=== PATIENT | male | born 1970 | race Caucasian/White ===

== ENCOUNTER 2022-11-25 16:45 | Emergency (ER) | payer BC, SELFPAY ==
--- NOTE | 2022-11-25 16:43 | ECG_ITS ---
APPROVED REPORT Exam: Resting ECG HR:102 bpm ECG Measurements Heart Rate 102 AXES SC 155 P 61 QRSd 100 QRS 80 QT 334 T 66 QTc 393 Conclusion SINUS TACHYCARDIA ABNORMAL RHYTHM ECG UNCONFIRMED REPORT Electronically signed by : Jacinto Roberts MD 11/27/2022 20:07:14
[2022-11-25 16:46] VITALS: BP 134/95; PULSE 107; RESP 17; TEMP 36.9; O2SAT 98; BMI 33.0
--- NOTE | 2022-11-25 16:55 | PC.NURSE ---
pt refusing IV or labs at this time. notified
[2022-11-25 17:00] VITALS: BP 124/95
--- NOTE | 2022-11-25 17:04 | XR_ITS ---
PROCEDURE INFORMATION: Exam: XR Chest Exam date and time: 11/25/2022 5:27 PM Age: 52 years old Clinical indication: Pain; Chest pressure and left-sided; Patient HX: Smoker; Additional info: Chest pain TECHNIQUE: Imaging protocol: Radiologic exam of the chest. Views: 1 view. COMPARISON: No relevant prior studies available. FINDINGS: Lungs: No lobar consolidation, pleural effusion or pulmonary edema. Pleural spaces: See Lungs finding. Heart/Mediastinum: Unremarkable. No cardiomegaly. Bones/joints: Unremarkable. IMPRESSION: No lobar consolidation, pleural effusion or pulmonary edema.
--- NOTE | 2022-11-25 17:10 | PC.NURSE ---
Rounded on patient; call light within reach. XR @ BS
[2022-11-25 17:17] LABS: Chloride 106 mmol/L (98-107); Potassium 3.5 mmoL/L (3.5-5.1); Sodium 140 mmol/L (136-145)
[2022-11-25 17:19] LABS: Alanine Aminotransferase 82 U/L (12-78); Alkaline Phosphatase 89 U/L (38-126); Aspartate Amino Transferase 56 U/L (17-59); Basophils # 0.1 K/mm3 (0-0.2); Bilirubin,Total 1.5 mg/dl (0.2-1.3); Blood Urea Nitrogen 14 mg/dl (9-20); Creatinine Clearance Estimated 163 mL/min (50-200); Eosinophils # 0.2 K/mm3 (0.0-0.4); Eosinophils % 2.4 % (0.1-12.0); Estimated Glomerular Filt Rate 102 ml/min (>60); GFR (African American) 124 ML/MIN (>60); Hematocrit 51.8 % (42.0-52.0); Hemoglobin 17.1 g/dL (14.1-18.0); Lymphocytes # 2.8 K/mm3 (0.7-4.5); Lymphocytes % 27.8 % (10-50); Mean Corpuscular Hemoglobin 29.4 pg (27.0-31.2); Mean Corpuscular Volume 89.2 fl (80-94); Mean Platelet Volume 8.3 fl (7.4-10.4); Monocytes # 0.6 K/mm3 (0.1-1.0); Monocytes % 5.8 % (1.7-9.3); Neutrophils # 6.4 K/mm3 (1.8-7.8); Platelet Count 331 K/mm3 (142-424); Red Blood Count 5.81 M/mm3 (4.60-6.20); Red Cell Distribution Width 13.2 % (11.5-17.5); White Blood Count 10.1 K/mm3 (4.8-10.8)
[2022-11-25 17:20] LABS: Albumin Level 4.1 g/dl (3.5-5.0); Albumin/Globulin Ratio 1.1 (1.1-1.8); Anion Gap 10.5 mEq/L (5-15); Calcium 8.9 mg/dl (8.4-10.2); Carbon Dioxide 27 mmol/L (22.0-30.0); Globulin 3.7 g/dL (1.3-3.2); Glucose 141 mg/dl (74-100); Total Protein,Serum 7.8 g/dl (6.3-8.2)
[2022-11-25 17:31] VITALS: BP 135/89; PULSE 94; RESP 20; O2SAT 95
[2022-11-25 17:33] LABS: Troponin I < 0.01 ng/ml (0.00-0.034)
--- NOTE | 2022-11-25 17:55 | HMH.EDGENADL ---
Discharge Plan Disposition Chief Complaint: Chest Pain Activity Restrictions/Add. Instructions Additional Instructions/Restrictions: Call your family doctor to establish care for this visit to the emergency department and schedule follow-up within 48 hours to ensure improvement. If you have any worsening of your condition or any other concerning signs or symptoms, return to the emergency department or your primary care doctor for further evaluation. Clinical Impressions Clinical Impression: Chest pain Discharge ED Provider: Chris Meza General Adult HPI General Chief complaint: Chest Pain Stated complaint: chest pain Time Seen by Provider: 11/25/22 16:47 Mode of Arrival: Ambulatory Source of Information: Patient Limitations: No Limitations Description of Symptoms (Recalled from ER Triage Doc. by RN): PT C/O LEFT UPPER CHEST PAIN THAT RADIATES TO LEFT ARM, STARTED YESTERDAY. REPORTS NEW SHORTNESS OF BREATH. History of Present Illness HPI narrative: 52-year-old male with history of anxiety and chest pain presenting with chest pain. Patient states that his left upper extremity chest pain and left-sided chest pain started yesterday. On 11/24. Patient having pain radiating from his left shoulder down to his left first through third fingers. No weakness. Chest pain does not radiate to back or neck. No shortness of breath, nausea vomiting,, neurologic deficits, or any other concerns. Related Data Allergies Allergy/AdvReac Type Severity Reaction Status Date / Time shellfish derived Allergy Verified 11/25/22 17:04 [facility] Disclaimer: The information contained in this section may have been updated after the patient was seen, as this information can be updated by other users. Social History Smoking Status: Current every day smoker alcohol intake: never current occupational status: employed and unemployed Travel in the last 8 weeks: None ROS Obtained: Yes All systems reviewed & no additional complaints except as documented Physical Exam General General appearance: alert, in no apparent distress and other ( ) Head Head exam: atraumatic and normocephalic Eye Eye exam: Present normal appearance, PERRL and EOMI ENT ENT exam: Present mucous membranes moist Neck Neck exam: Present normal inspection, full ROM and trachea midline Respiratory Respiratory exam: Absent respiratory distress, wheezes, stridor, accessory muscle use or prolonged expiratory phase Cardiovascular Cardiovascular exam: Present regular rate and normal rhythm Abdominal Exam Abdominal exam: Present soft; Absent distention, tenderness, guarding, rebound, rigidity or normal bowel sounds Extremities Exam Extremities exam: Absent edema Neurological Exam Neurological exam: Present alert, oriented X3, CN II-XII intact and normal gait; Absent motor sensory deficit Skin Skin exam: Present warm and dry; Absent diaphoresis or erythema Medical Decision Making Medical Records Medical records reviewed: Yes I reviewed the patient's medical records. Jacob Inquiry Pt receiving controlled substance: No Jacob was queried for this patient: No Vital Signs: 11/25/22 16:46 11/25/22 17:00 11/25/22 17:31 Temperature 98.4 F Temperature Source Oral Pulse Rate 94 H Pulse Rate [Apical] 107 H Respiratory Rate 17 20 Blood Pressure 124/95 H 135/89 Blood Pressure [Right Arm] 134/95 H Blood Pressure Mean 104 103 Blood Pressure Mean [Right Arm] 108 Blood Pressure Source [Right Arm] Automatic Cuff Blood Pressure Position [Right Arm] Sitting 02 Sat by Pulse Oximetry 98 95 Oxygen Delivery Method Room Air Lab Data Lab Results 11/25/22 16:55: WBC 10.1, RBC 5.81, Hgb 17.1, Hct 51.8, MCV 89.2, MCH 29.4, MCHC 33.0, RDW 13.2, Plt Count 331, MPV 8.3, Neut % (Auto) 63.0, Lymph % (Auto) 27.8, Dodge % (Auto) 5.8, Eos % (Auto) 2.4, Baso % (Auto) 1.0, Neut # (Auto) 6.4, Lymph # (Auto) 2.8, Dodge # (Auto) 0.6, Eos # (Auto) 0.2, Baso # (Auto)
[2022-11-25 18:16] VITALS: BP 127/85; PULSE 89; RESP 17; TEMP 36.8; O2SAT 95
== END 2022-11-25 18:16 | disposition home or self-care (01) ==
PROVIDERS: Emergency Provider Emergency Medicine
DX: R07.9 Chest pain, unspecified (principal); M79.602 Pain in left arm; R00.0 Tachycardia, unspecified; F17.200 Nicotine dependence, unspecified, uncomplicated
CPT/HCPCS: 71045; 80053; 84484; 85025; 93005; 99285

== ENCOUNTER 2023-01-26 14:09 | Emergency (ER) | payer BC, SELFPAY ==
--- NOTE | 2023-01-26 14:24 | XR_ITS ---
PROCEDURE INFORMATION: Exam: XR Chest Exam date and time: 01/26/2023 2:35 PM Age: 52 years old Clinical indication: Cough; Additional info: Cough x1 month now productive TECHNIQUE: Imaging protocol: Radiologic exam of the chest. Views: 1 view. COMPARISON: CR XR CHEST PORTABLE 11/25/2022 5:27 PM FINDINGS: Lungs: Unremarkable. No consolidation. Pleural spaces: Unremarkable. No pleural effusion. No pneumothorax. Heart/Mediastinum: Unremarkable. No cardiomegaly. Bones/joints: Unremarkable. IMPRESSION: No acute findings.
[2023-01-26 14:25] VITALS: BP 148/99; PULSE 113; RESP 20; TEMP 36.9; O2SAT 98; BMI 27.6
--- NOTE | 2023-01-26 14:42 | HMH.EDGENADL ---
Discharge Plan Disposition Patient Disposition: Home, Self-Care Chief Complaint: Upper Respiratory Infection Prescriptions Prescriptions: No Action hydroxyzine pamoate [Vistaril] 25 mg capsule 25 mg PO Q6H PRN (Reason: anxiety) Qty: 30 0RF Referrals Follow up/Referrals: Provider,MD Gerald [Primary Care Provider] - See instructions Activity Restrictions/Add. Instructions Additional Instructions/Restrictions: Call your family doctor to establish care for this visit to the emergency department and schedule follow-up within 48 hours to ensure improvement. If you have any worsening of your condition or any other concerning signs or symptoms, return to the emergency department or your primary care doctor for further evaluation. Augmentin twice daily for 10 days. Clinical Impressions Clinical Impression: Pneumonia Qualifiers: Pneumonia type: due to unspecified organism Laterality: right Lung location: lower lobe of lung Qualified Code(s): J18.9 - Pneumonia, unspecified organism Discharge ED Provider: Chris Meza General Adult HPI General Chief complaint: Upper Respiratory Infection Stated complaint: chest congestion,cough Time Seen by Provider: 01/26/23 14:17 Mode of Arrival: Ambulatory Source of Information: Patient Limitations: No Limitations Description of Symptoms (Recalled from ER Triage Doc. by RN): pt to ed c/o cough and congestion x3w. pt reports increased soa with exertion. History of Present Illness HPI narrative: 52-year-old male with no relevant medical history other than 40-year smoking history presenting with cough. Patient states that he got a cough about a month prior to this visit. Has had persistent cough since that time. Was dry until about 3 to 4 days prior to arrival. It is now productive of dark green, thick sputum. He also states that he has been nauseated and having posttussive emesis. No objective fevers, abdominal pain, chest pain, or any other concerns. Related Data Previous Rx's Medication Instructions Recorded hydroxyzine pamoate 25 mg capsule 25 mg PO Q6H PRN anxiety #30 caps 11/25/22 (Vistaril) Allergies Allergy/AdvReac Type Severity Reaction Status Date / Time shellfish derived Allergy Verified 11/25/22 17:04 [facility] Disclaimer: The information contained in this section may have been updated after the patient was seen, as this information can be updated by other users. Social History (Updated 11/25/22 @ 18:11 by Chris Meza MD) Smoking Status: Current every day smoker alcohol intake: never current occupational status: employed and unemployed Travel in the last 8 weeks: None ROS Obtained: Yes All systems reviewed & no additional complaints except as documented Physical Exam General General appearance: alert and in no apparent distress Head Head exam: atraumatic and normocephalic Eye Eye exam: Present normal appearance, PERRL and EOMI ENT ENT exam: Present mucous membranes moist Neck Neck exam: Present normal inspection, full ROM and trachea midline Respiratory Respiratory exam: Present normal lung sounds bilaterally; Absent respiratory distress, wheezes, stridor, accessory muscle use or prolonged expiratory phase Cardiovascular Cardiovascular exam: Present regular rate and normal rhythm Abdominal Exam Abdominal exam: Present soft; Absent distention, tenderness, guarding, rebound, rigidity or normal bowel sounds Extremities Exam Extremities exam: Absent edema Neurological Exam Neurological exam: Present alert, oriented X3, CN II-XII intact and normal gait; Absent motor sensory deficit Skin Skin exam: Present warm and dry; Absent diaphoresis or erythema Medical Decision Making Medical Records Medical records reviewed: Yes I reviewed the patient's medical records. Jacob Inquiry Pt receiving controlled substance: No Jacob was queried for this patient: No Vital Signs: 01/26/23 14:25 Temperature 98.5 F Temperature Source Oral
[2023-01-26 15:08] VITALS: BP 143/83; PULSE 101; RESP 16; TEMP 36.9
== END 2023-01-26 15:09 | disposition home or self-care (01) ==
PROVIDERS: Emergency Provider Emergency Medicine
DX: J18.1 Lobar pneumonia, unspecified organism (principal); R09.89 Other specified symptoms and signs involving the circulatory and respiratory systems; R05.9 Cough, unspecified; R06.09 Other forms of dyspnea; R11.2 Nausea with vomiting, unspecified; F17.210 Nicotine dependence, cigarettes, uncomplicated
CPT/HCPCS: 71045; 99283

== ENCOUNTER 2023-03-21 14:27 | Emergency (ER) | payer BC, SELFPAY ==
[2023-03-21 14:28] VITALS: BP 161/110; PULSE 105; RESP 20; TEMP 37.3; O2SAT 95; BMI 33.9
[2023-03-21 14:45] VITALS: BP 161/110; PULSE 105; RESP 20; TEMP 37.3; O2SAT 95
--- NOTE | 2023-03-21 15:18 | ED_ITS ---
Discharge Plan Disposition Patient Disposition: Home, Self-Care Prescriptions Prescriptions: No Action hydroxyzine pamoate [Vistaril] 25 mg capsule 25 mg PO Q6H PRN (Reason: anxiety) Qty: 30 0RF amoxicillin-pot clavulanate 875-125 mg tablet 1 tab PO BID 10 Days Qty: 20 0RF Referrals Follow up/Referrals: Provider,Referral, MD [Primary Care Provider] - See instructions Activity Restrictions/Add. Instructions Additional Instructions/Restrictions: At this time it was felt you are safe to be discharged home. There was an opening in Dr. Gupta schedule today, please present to his office to establish care. Clinical Impressions Clinical Impression: Asymptomatic hypertension Discharge ED Provider: Tomas Wallace Adult HPI General Chief complaint: Recheck/Abnormal Lab/Rx Stated complaint: blood pressure high Time Seen by Provider: 03/21/23 15:13 Mode of Arrival: Ambulatory Source of Information: Patient Limitations: No Limitations Description of Symptoms (Recalled from ER Triage Doc. 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 pt has to go back for rpt CDL physical in 10 days History of Present Illness HPI narrative: Patient is a 52-year-old male with no chronic comorbidities who presents emergency department for evaluation of asymptomatic hypertension. 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 Patient denies any symptoms at this time. Per chart review patient had labs that were drawn in November that were largely unremarkable. Related Data Previous Rx's Medication Instructions Recorded hydroxyzine pamoate 25 mg capsule 25 mg PO Q6H PRN anxiety #30 caps 11/25/22 (Vistaril) amoxicillin 875 mg-potassium 1 tab PO BID 10 days #20 tabs 01/26/23 clavulanate 125 mg tablet Allergies Allergy/AdvReac Type Severity Reaction Status Date / Time shellfish derived Allergy Verified 11/25/22 17:04 [facility] Disclaimer: The information contained in this section may have been updated after the patient was seen, as this information can be updated by other users. Social History (Updated 11/25/22 @ 18:11 by Chris Meza MD) Smoking Status: Current every day smoker alcohol intake: never current occupational status: employed and unemployed Travel in the last 8 weeks: None ROS Obtained: Yes Systems reviewed as appropriate & no additional complaints except as documented Physical Exam General General appearance: alert and in no apparent distress Head Head exam: atraumatic and normocephalic Eye Eye exam: Present PERRL ENT ENT exam: Present mucous membranes moist Neck Neck exam: Present normal inspection Chest Chest inspection: Present normal inspection and symmetric chest wall rise Respiratory Respiratory exam: Absent respiratory distress Cardiovascular Cardiovascular exam: Present normal rhythm and tachycardia Abdominal Exam Abdominal exam: Present soft; Absent tenderness Extremities Exam Extremities exam: Present normal inspection Neurological Exam Neurological exam: Present alert Psychiatric Psychiatric exam: Present normal affect Medical Decision Making Jacob Inquiry Pt receiving controlled substance: No Vital Signs: 03/21/23 14:28 03/21/23 14:45 Temperature 99.1 F 99.1 F Temperature Source Oral Oral Pulse Rate [Right Radial] 105 H 105 H Respiratory Rate 20 20 Blood Pressure [Right Arm] 161/110 H 161/110 H Blood Pressure Mean [Right Arm] 127 127 02 Sat by Pulse Oximetry 95 95 Oxygen Delivery Method Room Air Room Air Medical Decision Narrative: In summary patient is a 52-year-old male with no pertinent past medical history presents emergency department for evaluation of asymptomatic hypertension. Patient is hemodynamically stable nontoxic-appearing upon arrival. Patient has no symptoms that would warrant investigation at this time although workup with labs and imaging was considered will be deferred. Patient's blood pressure was 161/110. Review of previous labs conducted in November show no actionable abnormalities, normal creatinine. The case was discussed with Dr. Gupta and he graciously excepted patient to establish care immediately Critical Care Critical Care Time Critical Care Time: No
--- NOTE | 2023-03-21 15:18 | PC.NURSE ---
DR PEÑA AT BEDSIDE
--- NOTE | 2023-03-21 15:19 | PC.NURSE ---
DR PEÑA SPEAKING WITH DR Jamila MEZA
[2023-03-21 15:30] VITALS: BP 150/98; PULSE 90; RESP 20; TEMP 36.9; O2SAT 99
== END 2023-03-21 15:31 | disposition home or self-care (01) ==
PROVIDERS: Emergency Provider Emergency Medicine
DX: I10 Essential (primary) hypertension (principal); F17.200 Nicotine dependence, unspecified, uncomplicated
CPT/HCPCS: 99282

== ENCOUNTER 2023-04-01 20:14 | Emergency (ER) | payer BC, SELFPAY ==
[2023-04-01 20:16] VITALS: BP 135/90; PULSE 92; RESP 18; TEMP 36.7; O2SAT 98; BMI 35.6
--- NOTE | 2023-04-01 20:21 | ECG_ITS ---
APPROVED REPORT Exam: Resting ECG HR:94 bpm ECG Measurements Heart Rate 94 AXES NM 154 P 70 QRSd 105 QRS 76 QT 362 T 61 QTc 414 Conclusion SINUS RHYTHM Normal ECG UNCONFIRMED REPORT Electronically signed by : Jacinto Roberts MD 04/02/2023 16:38:48
--- NOTE | 2023-04-01 20:40 | PC.NURSE ---
pt refuses to be stuck for IV or bloodwork
[2023-04-01 21:00] VITALS: BP 140/93; PULSE 89; RESP 16; O2SAT 96
--- NOTE | 2023-04-01 21:19 | HMH.EDGENADL ---
Discharge Plan Disposition Patient Disposition: Left Against Medical Advice Prescriptions Prescriptions: New amoxicillin-pot clavulanate 875-125 mg tablet 1 tab PO BID 10 Days Qty: 20 0RF No Action losartan 50 mg tablet 50 mg PO DAILY Qty: 30 2RF Referrals Follow up/Referrals: Baldev Gupta DO [Primary Care Provider] - See instructions Luis Diaz [Referring] - See instructions Activity Restrictions/Add. Instructions Additional Instructions/Restrictions: Please follow-up with Dr. Diaz regarding your dental caries and the infection and associated with the teeth. Please also follow-up with Dr. Gupta and/or Dr. Sweet for your passing out and if you decide to come back and get blood work for your near passing out symptoms please return at any point. Clinical Impressions Clinical Impression: Dental caries, Cellulitis of face, Near syncope Stand Alone Forms Stand Alone Forms: Work/School Release Discharge ED Provider: Geoffrey Stearns General Adult HPI General Chief complaint: Dizziness Stated complaint: dizziness fainted shaky not eaten Time Seen by Provider: 04/01/23 21:01 Mode of Arrival: Ambulatory Source of Information: Patient Limitations: No Limitations Description of Symptoms (Recalled from ER Triage Doc. by RN): Pt was at work when he states he felt dizzy after a slamming door startled him and he went down to knee. Denies any CP,SOA, dizziness, N/V, or weakness at this time. Pt only complains of pain in left lower tooth that has been hurting for 3 days. History of Present Illness HPI narrative: Patient is a 53-year-old male presenting with multiple complaints today. States he has bilateral dental caries which have been severe over the last several weeks and hurting for a few days with some swelling to the left side of his face. States he is afraid of needles and has not seen a dentist for that reason. Related Data Previous Rx's Medication Instructions Recorded losartan 50 mg tablet 50 mg PO DAILY #30 tabs 03/21/23 amoxicillin 875 mg-potassium 1 tab PO BID 10 days #20 tabs 04/01/23 clavulanate 125 mg tablet Allergies Allergy/AdvReac Type Severity Reaction Status Date / Time shellfish derived Allergy Verified 03/21/23 15:39 [facility] Disclaimer: The information contained in this section may have been updated after the patient was seen, as this information can be updated by other users. Social History Smoking Status: Current every day smoker alcohol intake: never current occupational status: employed and unemployed Travel in the last 8 weeks: None ROS Obtained: Yes All systems reviewed & no additional complaints except as documented Physical Exam General General appearance: alert Respiratory Respiratory exam: Present normal lung sounds bilaterally Cardiovascular Cardiovascular exam: Present regular rate Neurological Exam Neurological exam: Present alert Medical Decision Making Jacob Inquiry Pt receiving controlled substance: No Vital Signs: 04/01/23 20:16 04/01/23 21:00 04/01/23 21:23 Temperature 98.1 F 98.1 F Temperature Source Oral Oral Pulse Rate 89 88 Pulse Rate [Left] 92 H Respiratory Rate 18 16 18 Blood Pressure 140/93 H 136/84 Blood Pressure [Right Arm] 135/90 Blood Pressure Mean 111 Blood Pressure Mean [Right Arm] 105 Blood Pressure Source Automatic Cuff Blood Pressure Source [Right Arm] Automatic Cuff Blood Pressure Position Sitting Blood Pressure Position [Right Arm] Sitting 02 Sat by Pulse Oximetry 98 96 Oxygen Delivery Method Room Air Room Air Room Air Medical Decision Narrative: EKG performed I personally interpreted shows a ventricular rate of 94 sinus rhythm no acute ischemic changes noted normal axis no conduction abnormalities nondiagnostic from a syncopal standpoint. Refuse any type of diagnostic workup because he is afraid of needles. I also offered him a dental block for pain control which she also declined. A prescription of antibiotics were sent to his pharmacy. He signed out AMA because he refused any further workup. He has been advised to return to the emergency department if he changes his mind or wants any other evaluation or treatment. Critical Care Critical Care Time Critical Care Time: No
[2023-04-01 21:23] VITALS: BP 136/84; PULSE 88; RESP 18; TEMP 36.7; O2SAT 99
--- NOTE | 2023-04-01 21:26 | PC.NURSE ---
Pt wishing to leave AMA, paperwork signed, work excuse provided
== END 2023-04-01 21:26 | disposition left against medical advice (07) ==
PROVIDERS: Emergency Provider Student in an Organized Health Care Education/Training Program; PCP Internal Medicine
DX: L03.211 Cellulitis of face (principal); R55 Syncope and collapse; R42 Dizziness and giddiness; F17.200 Nicotine dependence, unspecified, uncomplicated
CPT/HCPCS: 93005; 99283

== ENCOUNTER 2024-06-27 10:49 | Outpatient (CLI) | payer OTHER, SELFPAY ==
[2024-06-27 11:36] LABS: Basophils # 0.1 K/mm3 (0-0.2); Eosinophils # 0.2 Kmm3 (0.0-0.4); Eosinophils % 2.2 % (0.1-12.0); Hematocrit 49.7 % (42.0-52.0); Hemoglobin 17.1 g/dL (14.1-18.0); Lymphocytes # 3.2 K/mm3 (0.7-4.5); Mean Corpuscular HGB Conc 34.4 g/dL (31.8-35.4); Mean Corpuscular Hemoglobin 30.7 pg (27.0-31.2); Mean Corpuscular Volume 89.2 fl (80-94); Mean Platelet Volume 10.7 fl (7.4-10.4); Monocytes # 0.6 K/mm3 (0.1-1.0); Monocytes % 6.3 % (1.7-9.3); Neutrophils % 59.2 % (37.0-80.0); Nucleated Red Blood Cells # 0 10^3/uL; Nucleated Red Blood Cells % 0 %; Platelet Count 325 K/mm3 (142-424); Red Blood Count 5.57 M/mm3 (4.60-6.20); Red Cell Distribution Width 12.3 % (11.5-17.5); Red Cell Distribution Width-SD 40.1 fL; White Blood Count 10.2 K/mm3 (4.8-10.8)
[2024-06-27 12:00] LABS: Alanine Aminotransferase 33 U/L (12-78); Albumin Level 4.4 g/dl (3.5-5.0); Albumin/Globulin Ratio 1.4 (1.1-1.8); Alkaline Phosphatase 81 U/L (38-126); Anion Gap 9.2 mEq/L (5-15); Aspartate Amino Transferase 27 U/L (17-59); Bilirubin,Total 1.3 mg/dl (0.2-1.3); Blood Urea Nitrogen 11 mg/dl (9-20); Calcium 9.2 mg/dl (8.4-10.2); Carbon Dioxide 24 mmol/L (22.0-30.0); Chloride 109 mmol/L (98-107); Chol/HDL Ratio 9.6 (1-3.5); Cholesterol 260 mg/dl (140-200); Estimated Glomerular Filt Rate 102 ml/min (>60); GFR (African American) 123 ML/MIN (>60); Globulin 3.1 g/dL (1.3-3.2); Glucose 103 mg/dl (74-100); HDL Cholesterol 27 mg/dl (40-60); Potassium 4.2 mmoL/L (3.5-5.1); Sodium 138 mmol/L (136-145); Total Protein,Serum 7.5 g/dl (6.3-8.2); Triglycerides 241 mg/dl (30-150); VLDL Cholesterol 48 mg/dL (0-40)
[2024-06-27 12:11] LABS: Direct LDL Cholesterol 184.53 mg/dL (100-129)
[2024-06-27 12:31] LABS: Prostate Specific Ag Screen 0.7 ng/ml (0.0-4.0)
[2024-06-27 12:41] LABS: HIV Combo NEGATIVE (Negative)
[2024-06-27 12:49] LABS: Hepatitis C Ab Qual. W/ RFX NEGATIVE (Negative)
[2024-06-27 14:26] LABS: Hemoglobin A1C 5.7 % (4.0-6.0)
== END 2024-06-27 23:59 | disposition home or self-care (01) ==
LOC: LAB 10:51
PROVIDERS: PCP Internal Medicine; Visit Provider Internal Medicine
DX: Z13.220 Encounter for screening for lipoid disorders (principal); Z00.00 Encounter for general adult medical examination without abnormal findings; Z11.59 Encounter for screening for other viral diseases; Z12.5 Encounter for screening for malignant neoplasm of prostate; Z11.4 Encounter for screening for human immunodeficiency virus [HIV]; Z13.1 Encounter for screening for diabetes mellitus
CPT/HCPCS: 36415; 80053; 80061; 83036; 85025; 86803; 87389; G0103

== ENCOUNTER 2024-10-30 14:11 | Emergency (ER) | payer OTHER, SELFPAY ==
[2024-10-30] VITALS (14 sets, daily range): BP systolic 134–160; BP diastolic 92–107; PULSE 78–101; RESP 16–18; TEMP 36.7–36.8; O2SAT 93–98; BMI 33.7
--- NOTE | 2024-10-30 14:30 | PC.NURSE ---
er at bedside
--- OUTSIDE RECORDS SUMMARY | 2024-10-30 14:31 | XMS_ITS | Clinical Summary ---
Author Organization [facility] Address [address] [place] [address] Phone Care Team Providers Care Housing Assistant Name Role Phone Unavailable Primary Care Provider Unavailabl e Allergies Active Allergy Reactions Criticality Noted Date Comments Shellfish Containing Products 08/01/2012 Ketorolac Other (See Comments) 09/18/2022 Pt states it gives him an extreme headache Medications No known medications Active Problems Problem Noted Date Diagnosed Date Gallstones 09/21/2022 Overview (09/21/2022): Added automatically from request for surgery [id number] Right upper quadrant abdominal pain 09/19/2022 Diverticulitis of sigmoid colon 10/20/2015 Overview (10/20/2015): 10/19/15 CT Result Impression: Minimal mid sigmoid diverticulitis with a small associated fluid collection consistent with a small diverticular abscess. This is probably too small to be amenable to drainage. Tobacco abuse 10/20/2015 Overview (10/20/2015): Does not want a patch. Is working on cutting back . Down to a half a pack. Advance directive discussed with patient 016 Overview (10/20/2015): Jocelin Forrester is his health care surrogate Overweight (BMI 25.0-29.9) 10/20/2015 Overview (10/20/2015): Diet and exercise needs to be discussed with patient. Full code status 10/20/2015 Resolved Problems Problem Noted Date Diagnosed Date Resolved Date Healthcare maintenance 10/20/201509/19 Overview (10/20/2015): Age > 35, Needs lipid screen Surgical History Surgery Date Site/Laterality Comments CHOLECYSTECTOMY, LAPAROSCOPIC 10/05/2022 Abdomen/N/A Laparoscopic cholecystectomy; Surgeon: Julio Tony MD; Location: [facility]; Service: General Family History Medical History Relation Name Comments Anesth Problems Neg Hx Social History Tobacco Use Types Packs/Day Years Used Date Smoking Tobacco: Every Day Cigarettes Tobacco Cessation:Ready to Q uit: Not Asked; Counseling Given: Not Answered Comments:Occasionally uses dip Alcohol Use Standard Drinks/Week Comments No 0 (1 standard drink = 0.6 oz pur e alcohol) Sex and Gender Information Value Date Recorded Sex Assigned at Not on file Legal Sex Male 4:51 AM EDT Gender Identity Not on file Sexual Orientation Not on file Obstetrics History Last Filed Vital Signs Vital Sign Reading Time Taken Comments Blood Pressure 138/90 10/05/2022 12:30 PM EDT Pulse 62 10/05/2022 12:30 PM EDT Temperature 36.3 C (97.4 F) 10/05/2022 12:02 PM EDT Respiratory Rate 16 10/05/2022 12:02 PM EDT Oxygen Saturation 97% 10/05/2022 12:30 PM EDT Inhaled Oxygen Concentration - - Weight 107.5 kg (237 lb) 10/04/2022 11:10 AM EDT Height 180.3 cm (5' 11 ) 10/04/2022 11:10 AM EDT Body Mass Index 33.05 10/04/2022 11:10 AM EDT Plan of Treatment Health Maintenance Due Date Last Done Comments Annual Wellness Exam 1975 DTaP/TDaP/Td (6 - Tdap) 10/13/1987 10/11/18 88, 10/12/1977, 08/08/1976, Additional history exists Hepatitis B Vaccine (1 of 3 - 19+ 3-dose series) 1991 Pneumococcal Vaccine 50+ (1 of 2 - PCV) 1991 Cologuard 2017 Colon Cancer Screening 2017 Colonoscopy 2017 FIT 2017 Sigmoidoscopy 2017 Virtual Colonography 2017 Zoster (1 of 2) 2022 COVID-19 Vaccine ( season) 2023 01/20/2021 Influenza Vaccine (#1) 2024 Meningococcal B Vaccine Aged Out No l onger eligible based on patient's age to complete this topic Insurance [facility] MEDICAID Member Subscriber Plan / Payer (Ef fective 2021-Present) Name:Theodore Calero Relation to Subscriber:Self Name:Theodore Calero Payer ID:Not on file Group ID:Not on file Type:Not on file Address: [address] [id number] [facility] MEDICAID Advance Directives For more information, please contact: [phone] * Full Code (Latest Code Status on File) Date Activated Date Inactivated Comments 09/19/2022 12:08 PM 09/19/2022 6:42 PM * Full Code Date Activated Date Inactivated Comments 10/20/2015 7:07 AM 10/20/2015 6:58 PM
--- NOTE | 2024-10-30 14:34 | CT_ITS ---
FINAL REPORT TECHNIQUE: CT examination through the facial bones was performed using axial images from the thoracic inlet through the mid calvarium. Intravenous contrast was administered. Multiplanar reconstructions in the sagittal and coronal planes were subsequently performed. This study was performed with techniques to keep radiation doses as low as reasonably achievable (ALARA). Individualized dose reduction techniques using automated exposure control or adjustment of mA and/or kV according to the patient's size were employed. CLINICAL HISTORY: Left facial abscessvs.periapical abscess/celluliti COMPARISON: None FINDINGS: CT FACIAL BONES WITH CONTRAST: CT examination of the facial bones was performed after the administration of intravenous contrast. There is marked soft tissue swelling involving the entire lower face on the left side, and along the anterior aspect of the left mandible. Multiple dental caries are present. There are periapical lucencies surrounding the posterior most left mandibular molars, consistent with periapical abscesses. There is cortical irregularity of the anterior aspect of the maxilla at the midline worrisome for bone destruction, which extends to the inferior aspect of the left nasal cavity. No convincing subperiosteal abscess is identified. There are enlarged bilateral submental and submandibular nodes, greater on the left than on the right. The visualized portions of the paranasal sinuses are clear. IMPRESSION: 1. Multiple dental caries with periapical lucencies involving the posterior most left molars. 2. Left facial cellulitis is present without subperiosteal abscess. 3. Lymphadenopathy, likely reactive. 4. Irregularity of the anterior maxillary cortex could also be related to bone destruction and additional periapical abscess. Reviewed, Interpreted and Dictated by Blank Sutton MD Transcribed by Juany Harding Authenticated and [facility]
[2024-10-30] MEDS: MORPHINE 4MG/ML SYRINGE 4 MG IV (14:45)
[2024-10-30] MEDS: ONDANSETRON 4MG/2ML VIAL 4 MG IV (14:45)
[2024-10-30] MEDS: KETOROLAC 15MG/ML VIAL 15 MG IV (14:46)
--- NOTE | 2024-10-30 14:54 | PC.NURSE ---
wilmar herr doesn't want blood cultures obtained prior to antibiotic administration
[2024-10-30 15:04] LABS: Hematocrit 48.2 % (42.0-52.0); Hemoglobin 16.9 g/dL (14.1-18.0); Immature Granulocytes % 0.3 %; Mean Corpuscular HGB Conc 35.1 g/dL (31.8-35.4); Mean Corpuscular Hemoglobin 30.6 pg (27.0-31.2); Mean Corpuscular Volume 87.3 fl (80-94); Nucleated Red Blood Cells % 0 %; Platelet Count 330 K/mm3 (142-424); Red Blood Count 5.52 M/mm3 (4.60-6.20); Red Cell Distribution Width-SD 40.1 fL; White Blood Count 15.0 K/mm3 (4.8-10.8)
--- NOTE | 2024-10-30 15:05 | PC.NURSE ---
called pharmacy for antibiotic
--- NOTE | 2024-10-30 15:06 | ED_ITS ---
Discharge Plan Disposition Patient Disposition: Xfer Short-Term Hosp Prescriptions Prescriptions: No Action furosemide [Lasix] 20 mg tablet 20 mg PO DAILY PRN (Reason: edema) Qty: 30 3RF hydroxyzine HCl 50 mg tablet 50 mg PO TID PRN (Reason: anxiety) Qty: 90 0RF losartan 50 mg tablet 50 mg PO DAILY Qty: 30 0RF Rx Instructions: needs appt before any further refills rosuvastatin 10 mg tablet 10 mg PO DAILY Qty: 30 2RF Referrals Follow up/Referrals: Baldev Gupta DO [Primary Care Provider, Family Practice] - See instructions Activity Restrictions/Add. Instructions Additional Instructions/Restrictions: As discussed today you have a serious infection of your jaw from your teeth and you need to present to [facility] emergency department immediately. I recommended that you went by ambulance but you refused and you understand that your throat may close off. Given this it is at least better that you go by car than not at all. You have been given antibiotics. We were going to draw blood cultures and give you sepsis bolus fluids but you are leaving by car at this time. Please do not stop and present immediately at [facility] emergency department as they are expecting you, tell them you are on the expect list. Clinical Impressions Clinical Impression: Cellulitis of face, Dental caries, Lymphadenopathy, Sepsis, Osteomyelitis Stand Alone Forms Stand Alone Forms: Transfer Record - ED Print Language Print Language: Sinhala Discharge ED Provider: Chicho Moreno Adult HPI <Chicho Moreno DO - Last Filed: 10/30/24 16:19> General Chief complaint: PAIN Stated complaint: swellin/pain left side of throat, jaw, tooth Time Seen by Provider: 10/30/24 14:24 Mode of Arrival: Ambulatory Source of Information: Patient Description of Symptoms (Recalled from ER Triage Doc. by RN): pt presents to the er for dental pain, states he has 2 bad teeth on his back left side and 1 bad tooth on the right back side, his teeth on the left side hae been bothering him more than normal since 1am yesterday, woke up this morning with facial swelling to the left side of his face, rates pain 10/10, sharp. and constant History of Present Illness HPI narrative: This is a 54-year-old male patient, with past medical history of poor dentition and hyperlipidemia, who is presenting to the emergency department today for evaluation of left-sided facial swelling. Patient states that he has had horrendous dental pain over the last several days and when he woke up this morning the left side of his face near the angle of the jaw was swollen. He is not having any changes in the character or quality of his voice. No difficulty tolerating secretions. He is not experiencing a sore throat. He has not experienced any submental edema or pain. He states that he does have a foul taste in his mouth which she characterizes to be infection . Related Data Previous Rx's ?Medication ?Instructions ?Recorded hydroxyzine HCl 50 mg tablet 50 mg PO TID PRN anxiety #90 tabs 04/09/23 losartan 50 mg tablet 50 mg PO DAILY #30 tabs 07/25 furosemide 20 mg tablet (Lasix) 20 mg PO DAILY PRN adalberto ma #30 tabs 05/29/24 rosuvastatin 10 mg tablet 10 mg PO DAILY #30 tabs 07/03 04/28 Allergies Allergy/AdvReac Type Severity Reaction Status Date / Time shellfish derived Allergy Unknown Verified 10/30/24 14:23 allergy reaction COUNT INCLUDES THE [facility] <Chicho Moreno DO - Last Filed: 10/30/24 16:19> COUNT INCLUDES THE [facility] Disclaimer: The information contained in this section may have been updated after the patient was seen, as this information can be updated by other users. Medical History Abscessed tooth Social History Smoking Status: Current every day smoker alcohol intake: never current occupational status: employed and unemployed Travel in the last 8 weeks?: None Have you lived/traveled outside [place] in past 30 days?: No Contact w/someone who lives/traveled outside US past 30 days?: No Exposure to someone with infectious disease in past 14 days?: No Do you have a fever (greater than 100.4 F or 38 C)?: No Have you tested positive for COVID-19?: No Exposed to someone with COVID-19 in past 14 days?: No Do you have a sore throat?: No Do you have a cough?: No Do you have any weakness?: No Do you have any diarrhea?: No Are you experiencing any unusual bleeding?: No Do you have any muscle aches/pain?: No Do you have any abdominal pain?: No Are you experiencing loss of taste or smell?: No Other Medical History Have you received the Pneumonia Vaccine: No <Chicho Moreno DO - Last Filed: 10/30/24 16:19> ROS Obtained: Yes Systems reviewed as appropriate & no additional complaints except as documented Physical Exam <Chicho Moreno DO - Last Filed: 10/30/24 16:19> General General appearance: other (See MDM) Respiratory Respiratory exam: Present other (See MDM) Cardiovascular Cardiovascular exam: Present other (See MDM) Neurological Exam Neurological exam: Present other (See MDM) Medical Decision Making <Chicho Moreno DO - Last Filed: 10/30/24 16:19> Medical Records Medical records reviewed: Yes I reviewed the patient's medical records. Screening: Per USPSTF and CDC recommendations, given the prevalence of disease in our region, it is our hospital?s policy to screen for HIV and viral Hepatitis for all patients aged 18 and over and those with ongoing risk factors. Jacob Inquiry Pt receiving controlled substance: No Jacob was queried for this patient: No Vital Signs: 10/30/24 14:18 10/30/24 14:30 10/30/24 14:51 Temperature 98.2 F Temperature Source Oral Pulse Rate 96 H 83 Pulse Rate [Left Radial] 91 H Respiratory Rate 18 Blood Pressure 160/104 H 153/107 H Blood Pressure [Right Arm] 155/102 H Blood Pressure Mean Blood Pressure Mean [Right Arm] 119 Blood Pressure Source [Right Arm] Automatic Cuff Blood Pressure Position [Right Arm] Sitting 02 Sat by Pulse Oximetry 98 96 97 Oxygen Delivery Method Room Air 10/30/24 14:55 10/30/24 15:00 10/30/24 15:05 Temperature Temperature Source Pulse Rate 81 85 80 Pulse Rate [Left Radial] Respiratory Rate Blood Pressure 149/102 H 147/100 H 134/99 H Blood Pressure [Right Arm] Blood Pressure Mean Blood Pressure Mean [Right Arm] Blood Pressure Source [Right Arm] Blood Pressure Position [Right Arm] 02 Sat by Pulse Oximetry 97 97 97 Oxygen Delivery Method 10/30/24 15:10 10/30/24 15:15 10/30/24 15:36 Temperature Temperature Source Pulse Rate 79 78 101 H Pulse Rate [Left Radial] Respiratory Rate Blood Pressure 144/100 H 153/105 H Blood Pressure [Right Arm] Blood Pressure Mean Blood Pressure Mean [Right Arm] Blood Pressure Source [Right Arm] Blood Pressure Position [Right Arm] 02 Sat by Pulse Oximetry 97 97 97 Oxygen Delivery Method 10/30/24 16:00 10/30/24 16:18 10/30/24 16:30 Temperature Temperature Source Pulse Rate 79 88 86 Pulse Rate [Left Radial] Respiratory Rate Blood Pressure 150/96 H 141/95 H Blood Pressure [Right Arm] Blood Pressure Mean Blood Pressure Mean [Right Arm] Blood Pressure Source [Right Arm] Blood Pressure Position [Right Arm] 02 Sat by Pulse Oximetry 96 93 L 94 L Oxygen Delivery Method 10/30/24 17:00 Temperature Temperature Source Pulse Rate 85 Pulse Rate [Left Radial] Respiratory Rate 16 Blood Pressure 146/92 H Blood Pressure [Right Arm] Blood Pressure Mean 103 Blood Pressure Mean [Right Arm] Blood Pressure Source [Right Arm] Blood Pressure Position [Right Arm] 02 Sat by Pulse Oximetry 95 Oxygen Delivery Method Lab Data Lab Results 10/30/24 14:45: WBC 15.0 H, RBC 5.52, Hgb 16.9, Hct 48.2, MCV 87.3, MCH 30.6, MCHC 35.1, RDW 12.6, Plt Count 330, MPV 10.2, Neut % (Auto) 69.0, Lymph % (Auto) 22.2, [facility] % (Auto) 6.2, Eos % (Auto) 1.7, Baso % (Auto) 0.6, Neut # (Auto) 10.3 H, Lymph # (Auto) 3.3, [facility] # (Auto) 0.9, Eos # (Auto) 0.3, Baso # (Auto) 0.1, Sodium 136, Potassium 3.9, Chloride 105, Carbon Dioxide 24, Anion Gap 10.9, BUN 13, Creatinine 0.70, Estimated Creat Clear 181, Estimated GFR 118, Est GFR ( Amer) 143, Glucose 107 H, Calcium 9.3, Total Bilirubin 1.5 H, AST 32, ALT 42, Alkaline Phosphatase 83, C-Reactive Protein 30.9 H, Total Protein 8.2, Albumin 4.7, Globulin 3.5 H, Albumin/Globulin Ratio 1.3 10/30/24 14:45 10/30/24 14:45 Orders (Tests/Meds): ED MEDICATIONS Discontinued Medications Generic Name Dose Route Start Last Admin Trade Name Yamile PRN Reason Stop Dose Admin Acetaminophen 500 mg 10/30/24 14:37 10/30/24 14:53 Acetaminophen 500mg Tab PO 10/30/24 14:38 Not Given ONCE ONE Ampicillin Sodium/Sulbactam 100 mls @ 200 mls/hr 10/30/24 14:37 10/30/24 15:47 Sodium 3 gm/ Sodium Chloride IV 10/30/24 14:38 Infused ONCE ONE Infusion Iopamidol 75 ml 10/30/24 15:36 10/30/24 15:36 Iopamidol-370 (76%);100ml Bottle IV 10/30/24 15:37 75 ml ONCE ONE Administration Ketorolac Tromethamine 15 mg 10/30/24 14:37 10/30/24 14:46 Ketorolac 15mg/Ml Vial IV 10/30/24 14:38 15 mg ONCE ONE Administration Morphine Sulfate 4 mg 10/30/24 14:37 10/30/24 14:45 Morphine 4mg/Ml Syringe IV 10/30/24 14:38 4 mg ONCE ONE Administration Ondansetron HCl 4 mg 10/30/24 14:37 10/30/24 14:45 Ondansetron 4mg/2ml Vial IV 10/30/24 14:38 4 mg ONCE ONE Administration Sodium Chloride 10 ml 10/30/24 15:36 10/30/24 15:36 Sodium Chloride 0.9% 10ml Syr (Rad Only) IV 10/30/24 15:37 10 ml ONCE ONE Administration ORDERS Category Date Time Status CT facial bones w con Stat Cat Scan 10/30/24 14:34 Completed CBC w/Auto Diff [Complete Blood Count Auto Diff] Stat Lab 10/30/24 14:45 Completed CMP [Comprehensive Metabolic Panel] Stat Lab 10/30/24 14:45 Completed CRP [C-Reactive Protein] Stat Lab 10/30/24 14:45 Completed Medical Decision Narrative: In summary, this is a 54-year-old male patient who is presenting to the emergency department today for evaluation of left-sided facial swelling and pain. Patient's comorbidities include a past medical history of hyperlipidemia and poor dentition. On initial evaluation of the patient they were resting comfortably in no acute distress and nontoxic in appearance. They are hemodynamically stable, saturating well room air, and are neurologically intact. On physical examination of the patient his heart and lungs are clear to auscultation bilaterally. He is appropriately alert and oriented with a GCS of 15. On examination of his face there is edema of the left side of the face along the edge of the mandible. On examination of the intraoral compartment the patient is adentulous on the upper teeth, however the lower teeth are intact and there is very poor dentition with periodontal disease. The left-sided most posterior mandibular molar is completely eroded with a dental carry in the central portion of the tooth. Adjacent to this he has significant exquisite tenderness. Differential diagnosis includes periapical abscess, mandibular abscess, facial abscess, sialoadenitis, facial cellulitis, among others. This presentation is not consistent with Toño's angina. Tonsils are symmetric in appearance with no asymmetric bulging of the tonsillar pillars to suggest peritonsillar abscess. Uvula is in the midline. There is no muffled voice or difficulty tolerating secretions to suggest retropharyngeal abscess. Workup was initiated with hematologic labs as well as a CT scan of the face with contrast. Initial interventions included Toradol, Tylenol, morphine, and 3 g of IV Unasyn. Labs personally interpreted by me demonstrate a leukocytosis of 15 with a neutrophilic predominance. The patient also has a mildly elevated CRP at 30.9 which would be expected in his current condition. At the time of shift change this patient CT scan of his face was pending. This case was handed off to the oncoming physician who will follow-up on this result and disposition the patient appropriate. Transfer of Care Dr. Lundberg <Yousif Lundberg MD - Last Filed: 10/30/24 17:49> Vital Signs: 10/30/24 14:18 10/30/24 14:30 10/30/24 14:51 Temperature 98.2 F Temperature Source Oral Pulse Rate 96 H 83 Pulse Rate [Left Radial] 91 H Respiratory Rate 18 Blood Pressure 160/104 H 153/107 H Blood Pressure [Right Arm] 155/102 H Blood Pressure Mean Blood Pressure Mean [Right Arm] 119 Blood Pressure Source [Right Arm] Automatic Cuff Blood Pressure Position [Right Arm] Sitting 02 Sat by Pulse Oximetry 98 96 97 Oxygen Delivery Method Room Air 10/30/24 14:55 10/30/24 15:00 10/30/24 15:05 Temperature Temperature Source Pulse Rate 81 85 80 Pulse Rate [Left Radial] Respiratory Rate Blood Pressure 149/102 H 147/100 H 134/99 H Blood Pressure [Right Arm] Blood Pressure Mean Blood Pressure Mean [Right Arm] Blood Pressure Source [Right Arm] Blood Pressure Position [Right Arm] 02 Sat by Pulse Oximetry 97 97 97 Oxygen Delivery Method 10/30/24 15:10 10/30/24 15:15 10/30/24 15:36 Temperature Temperature Source Pulse Rate 79 78 101 H Pulse Rate [Left Radial] Respiratory Rate Blood Pressure 144/100 H 153/105 H Blood Pressure [Right Arm] Blood Pressure Mean Blood Pressure Mean [Right Arm] Blood Pressure Source [Right Arm] Blood Pressure Position [Right Arm] 02 Sat by Pulse Oximetry 97 97 97 Oxygen Delivery Method 10/30/24 16:00 10/30/24 16:18 10/30/24 16:30 Temperature Temperature Source Pulse Rate 79 88 86 Pulse Rate [Left Radial] Respiratory Rate Blood Pressure 150/96 H 141/95 H Blood Pressure [Right Arm] Blood Pressure Mean Blood Pressure Mean [Right Arm] Blood Pressure Source [Right Arm] Blood Pressure Position [Right Arm] 02 Sat by Pulse Oximetry 96 93 L 94 L Oxygen Delivery Method 10/30/24 17:00 Temperature Temperature Source Pulse Rate 85 Pulse Rate [Left Radial] Respiratory Rate 16 Blood Pressure 146/92 H Blood Pressure [Right Arm] Blood Pressure Mean 103 Blood Pressure Mean [Right Arm] Blood Pressure Source [Right Arm] Blood Pressure Position [Right Arm] 02 Sat by Pulse Oximetry 95 Oxygen Delivery Method Lab Data Lab Results 10/30/24 14:45: WBC 15.0 H, RBC 5.52, Hgb 16.9, Hct 48.2, MCV 87.3, MCH 30.6, MCHC 35.1, RDW 12.6, Plt Count 330, MPV 10.2, Neut % (Auto) 69.0, Lymph % (Auto) 22.2, [facility] % (Auto) 6.2, Eos % (Auto) 1.7, Baso % (Auto) 0.6, Neut # (Auto) 10.3 H, Lymph # (Auto) 3.3, [facility] # (Auto) 0.9, Eos # (Auto) 0.3, Baso # (Auto) 0.1, Sodium 136, Potassium 3.9, Chloride 105, Carbon Dioxide 24, Anion Gap 10.9, BUN 13, Creatinine 0.70, Estimated Creat Clear 181, Estimated GFR 118, Est GFR ( Amer) 143, Glucose 107 H, Calcium 9.3, Total Bilirubin 1.5 H, AST 32, ALT 42, Alkaline Phosphatase 83, C-Reactive Protein 30.9 H, Total Protein 8.2, Albumin 4.7, Globulin 3.5 H, Albumin/Globulin Ratio 1.3 Orders (Tests/Meds): ED MEDICATIONS Discontinued Medications Generic Name Dose Route Start Last Admin Trade Name Freq PRN Reason Stop Dose Admin Acetaminophen 500 mg 10/30/24 14:37 10/30/24 14:53 Acetaminophen 500mg Tab PO 10/30/24 14:38 Not Given ONCE ONE Ampicillin Sodium/Sulbactam 100 mls @ 200 mls/hr 10/30/24 14:37 10/30/24 15:47 Sodium 3 gm/ Sodium Chloride IV 10/30/24 14:38 Infused ONCE ONE Infusion Iopamidol 75 ml 10/30/24 15:36 10/30/24 15:36 Iopamidol-370 (76%);100ml Bottle IV 10/30/24 15:37 75 ml ONCE ONE Administration Ketorolac Tromethamine 15 mg 10/30/24 14:37 10/30/24 14:46 Ketorolac 15mg/Ml Vial IV 10/30/24 14:38 15 mg ONCE ONE Administration Morphine Sulfate 4 mg 10/30/24 14:37 10/30/24 14:45 Morphine 4mg/Ml Syringe IV 10/30/24 14:38 4 mg ONCE ONE Administration Ondansetron HCl 4 mg 10/30/24 14:37 10/30/24 14:45 Ondansetron 4mg/2ml Vial IV 10/30/24 14:38 4 mg ONCE ONE Administration Sodium Chloride 10 ml 10/30/24 15:36 10/30/24 15:36 Sodium Chloride 0.9% 10ml Syr (Rad Only) IV 10/30/24 15:37 10 ml ONCE ONE Administration ORDERS Category Date Time Status CT facial bones w con Stat Cat Scan 10/30/24 14:34 Completed CBC w/Auto Diff [Complete Blood Count Auto Diff] Stat Lab 10/30/24 14:45 Completed CMP [Comprehensive Metabolic Panel] Stat Lab 10/30/24 14:45 Completed CRP [C-Reactive Protein] Stat Lab 10/30/24 14:45 Completed Medical Decision Narrative: In summary, this is a 54-year-old male patient who is presenting to the emergency department today for evaluation of left-sided facial swelling and pain. Patient's comorbidities include a past medical history of hyperlipidemia and poor dentition. On initial evaluation of the patient they were resting comfortably in no acute distress and nontoxic in appearance. They are hemodynamically stable, saturating well room air, and are neurologically intact. On physical examination of the patient his heart and lungs are clear to auscultation bilaterally. He is appropriately alert and oriented with a GCS of 15. On examination of his face there is edema of the left side of the face along the edge of the mandible. On examination of the intraoral compartment the patient is adentulous on the upper teeth, however the lower teeth are intact and there is very poor dentition with periodontal disease. The left-sided most posterior mandibular molar is completely eroded with a dental carry in the central portion of the tooth. Adjacent to this he has significant exquisite tenderness. Differential diagnosis includes periapical abscess, mandibular abscess, facial abscess, sialoadenitis, facial cellulitis, among others. This presentation is not consistent with Toño's angina. Tonsils are symmetric in appearance with no asymmetric bulging of the tonsillar pillars to suggest peritonsillar abscess. Uvula is in the midline. There is no muffled voice or difficulty tolerating secretions to suggest retropharyngeal abscess. Workup was initiated with hematologic labs as well as a CT scan of the face with contrast. Initial interventions included Toradol, Tylenol, morphine, and 3 g of IV Unasyn. Labs personally interpreted by me demonstrate a leukocytosis of 15 with a neutrophilic predominance. The patient also has a mildly elevated CRP at 30.9 which would be expected in his current condition. At the time of shift change this patient CT scan of his face was pending. This case was handed off to the oncoming physician who will follow-up on this result and disposition the patient appropriate. Transfer of Care Dr. Toño Lundberg: Upon assumption of care patient is hemodynamically stable. Workup thus far reviewed by me, hematologic labs remarkable for nonspecific leukocytosis of 15, no transfusable anemia, no KENYON or critical electrolyte abnormality, CRP mildly elevated. Formal CT read shows multiple dental caries with periapical lucencies involving the posterior left molars, left facial cellulitis without superimposed abscess, reactive lymphadenopathy and irregularity of the anterior maxillary cortex which could be related to bony destruction and additional periapical abscess. I discussed these findings with the patient at length and I recommend that we call [facility] for further recommendations which we will pursue at this time. Patient is agreeable. Given the patient did have tachycardia with a white count of 15 and known infection patient technically meets sepsis criteria. I relayed the seriousness of this infection to the patient however he does not wish to go by ambulance he wishes to go by car at this time. Given that he understands that his throat can close off he is able to understand his decision appreciate the consequences of decision reason through his decision to make and express choice therefore capacity. Although blood cultures were ordered and sepsis bolus fluids were ordered patient will go to via POV at this time. Critical Care <Chicho Moreno, DO - Last Filed: 10/30/24 16:19> Critical Care Time Critical Care Time: No
[2024-10-30 15:07] LABS: Albumin Level 4.7 g/dl (3.5-5.0); Chloride 105 mmol/L (98-107); Potassium 3.9 mmoL/L (3.5-5.1); Sodium 136 mmol/L (136-145)
[2024-10-30 15:10] LABS: Alanine Aminotransferase 42 U/L (12-78); Albumin/Globulin Ratio 1.3 (1.1-1.8); Alkaline Phosphatase 83 U/L (38-126); Aspartate Amino Transferase 32 U/L (17-59); Bilirubin,Total 1.5 mg/dl (0.2-1.3); Blood Urea Nitrogen 13 mg/dl (9-20); Creatinine Clearance Estimated 181 mL/min (50-200); Creatinine,Serum 0.70 mg/dl (0.66-1.25); Estimated Glomerular Filt Rate 118 ml/min (>60); GFR (African American) 143 ML/MIN (>60); Globulin 3.5 g/dL (1.3-3.2); Total Protein,Serum 8.2 g/dl (6.3-8.2)
[2024-10-30 15:11] LABS: Calcium 9.3 mg/dl (8.4-10.2); Glucose 107 mg/dl (74-100)
[2024-10-30 15:16] LABS: C-Reactive Protein 30.9 mg/L (0-4)
[2024-10-30] MEDS: AMPICILLIN/SULBACTAM 3 GM in 0.9 % SODIUM CHLORIDE 100 ML IV (15:17)
[2024-10-30] MEDS: SODIUM CHLORIDE 0.9% 10ML SYR (RAD ONLY) 10 ML IV (15:36)
[2024-10-30] MEDS: IOPAMIDOL-370 (76%);100ML BOTTLE 75 ML IV (15:36)
[2024-10-30 15:48] LABS: Anion Gap 10.9 mEq/L (5-15); Carbon Dioxide 24 mmol/L (22.0-30.0)
--- NOTE | 2024-10-30 17:28 | PC.NURSE ---
calling [facility] to page md for face medical education coordinator
--- NOTE | 2024-10-30 17:29 | PC.NURSE ---
called [facility] to power share images to [facility]
--- NOTE | 2024-10-30 17:33 | PC.NURSE ---
dr neri is speaking to dr paez at [facility] at this time
--- NOTE | 2024-10-30 17:53 | PC.NURSE ---
PT REFUSING TO GET STUCK FOR BLOOD CULTURES. AWARE.
--- NOTE | 2024-10-30 18:01 | PC.NURSE ---
CALLED REPORT TO DONATO PATEL AT
--- NOTE | 2024-10-30 18:05 | PC.NURSE ---
Patient refused to have venipuncture done for 2nd set of blood cultures. states to draw another set from IV that has been established for several hours.
--- NOTE | 2024-10-30 18:15 | PC.NURSE ---
Pt refused to be straight stuck for a second set of blood cultures.
== END 2024-10-30 18:16 | disposition short-term general hospital (02) ==
PROVIDERS: Emergency Provider Student in an Organized Health Care Education/Training Program; PCP Internal Medicine
DX: A41.9 Sepsis, unspecified organism (principal); M86.9 Osteomyelitis, unspecified; L03.211 Cellulitis of face; R59.1 Generalized enlarged lymph nodes; E78.5 Hyperlipidemia, unspecified; F17.200 Nicotine dependence, unspecified, uncomplicated
CPT/HCPCS: 70487; 80053; 82009; 85025; 86140; 87040; 96365; 96375; 99284; 99285; J0295; J1885; J2270; J2405; Q9967